=== PATIENT | male | born 1950 | race Caucasian/White ===

== ENCOUNTER → 2021-08-21 14:10 | Outpatient (BNVA) | payer MEDICARE, SELFPAY | PROVIDERS: PCP Internal Medicine; Visit Provider Psychiatry & Neurology Neurology | DX: I69.354 Hemiplegia and hemiparesis following cerebral infarction affecting left non-dominant side (principal); G47.9 Sleep disorder, unspecified; R06.83 Snoring | CPT/HCPCS: 99212 ==

== ENCOUNTER → 2022-02-25 10:21 | Outpatient (BNVA) | payer MEDICARE, SELFPAY | PROVIDERS: PCP Internal Medicine; Visit Provider Psychiatry & Neurology Neurology | DX: I69.354 Hemiplegia and hemiparesis following cerebral infarction affecting left non-dominant side (principal); R06.83 Snoring; G47.9 Sleep disorder, unspecified | CPT/HCPCS: 99212 ==

== ENCOUNTER → 2022-03-26 15:13 | Outpatient (REF) | payer MEDICARE, SELFPAY | LOC: HO.SL 15:13 | PROVIDERS: PCP Internal Medicine; Visit Provider Psychiatry & Neurology Neurology | DX: G47.33 Obstructive sleep apnea (adult) (pediatric) (principal) | CPT/HCPCS: 95806 ==

== ENCOUNTER → 2022-08-24 11:01 | Outpatient (BNVA) | payer MEDICARE, SELFPAY | PROVIDERS: PCP Internal Medicine; Visit Provider Psychiatry & Neurology Neurology | DX: I63.9 Cerebral infarction, unspecified (principal); G47.9 Sleep disorder, unspecified; R06.83 Snoring | CPT/HCPCS: 99212 ==

== ENCOUNTER → 2022-11-17 13:25 | Outpatient (BNVA) | payer MEDICARE, SELFPAY | PROVIDERS: PCP Internal Medicine; Visit Provider Psychiatry & Neurology Neurology | DX: G47.33 Obstructive sleep apnea (adult) (pediatric) (principal); I69.354 Hemiplegia and hemiparesis following cerebral infarction affecting left non-dominant side; Z79.82 Long term (current) use of aspirin; Z79.899 Other long term (current) drug therapy; Z99.89 Dependence on other enabling machines and devices | CPT/HCPCS: 99212 ==

== ENCOUNTER 2023-05-12 12:18 | Outpatient (AMB) | payer MEDICARE, SELFPAY ==
--- NOTE | 2023-05-12 12:33 | A.OFFVIS_ITS ---
Intake Vital Signs 05/12/23 12:34 Height 6 ft Weight 242 lb 8 oz BMI 32.9 BP 142/76 H Blood Pressure Location Rt brachial Position Sitting Respiration 16 Pulse 57 Pulse Source Pulse Oximeter Pulse Oximetry (%) 98 Oxygen Delivery Method Room Air Intake Visit Reasons: 6m follow up - Confirmed Intake Note: Pt presents for 6 month follow up for CVA. 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 AHI 45/hr lowest O2 -79%. He is not comfortable with CPAP so declines. He is very active still has mild residual weakness. He exercises every day. His blood pressure is well controlled [facility] Medical History EULOGIO on CPAP Sleep apnea Ascending aorta dilation CVA (cerebral vascular accident) Hyperlipidemia HTN (hypertension) Family History Father Heart attack Social History Alcohol intake: current Alcohol intake frequency: holidays/special occasions only Patient Tobacco Use Status: Never used Tobacco Review of Systems ENT Reports Normal hearing present Neuro Reports Normal hearing present Physical Exam Vital Signs: Last Vital Signs Pulse 57 05/12/23 12:34 Resp 16 05/12/23 12:34 BP 142/76 H 05/12/23 12:34 Pulse Ox 98 05/12/23 12:34 Oxygen Delivery Method Room Air 05/12/23 12:34 BMI result Body Mass Index 32.9 Const General: cooperative, healthy appearing, comfortable and no acute distress Nutritional Appearance: average body habitus Orientation/consciousness: patient oriented x3 Eyes Pupils: Equal, round and reactive pupils present Neuro General: patient oriented x3 Cranial nerves: Yes Equal, round and reactive pupils present, Yes Bilaterally intact EOM present, Yes Nystagmus not present, Yes Normal hearing present, Yes Ability to bilaterally rotate head present, Yes Ability to bilaterally elevate shoulders present and Yes Other cranial nerve findings present (mild left facial paresis) Cognition (Neuro): normal cognition Gait exam (Neuro): Spastic hemiparesis gait present Motor exam (neuro): Other motor observations present (left UE and LE - increased tone and power 4/5) Assessment & Plan Assessment & Plan (1) CVA (cerebral vascular accident): Code(s): I63.9 - Cerebral infarction, unspecified (2) EULOGIO on CPAP: Code(s): G47.33 - Obstructive sleep apnea (adult) (pediatric) Plan Continue aspirin 81 mg p.o. q.d. . Atorvastatin 80mg qd Auto CPAP 5-20 cm of water continue exercises. Coding Level of Care Code Est Pt Level 4 (89700) Diagnoses CVA (cerebral vascular accident) I63.9 EULOGIO on CPAP G47.33
[2023-05-12 12:34] VITALS: BP 142/76; PULSE 57; RESP 16; O2SAT 98; BMI 32.9
== END 2023-05-12 13:19 | disposition home or self-care (01) ==
PROVIDERS: PCP Internal Medicine; Visit Provider Psychiatry & Neurology Neurology
DX: I69.354 Hemiplegia and hemiparesis following cerebral infarction affecting left non-dominant side (principal); G47.33 Obstructive sleep apnea (adult) (pediatric); Z99.89 Dependence on other enabling machines and devices
CPT/HCPCS: 99214

== ENCOUNTER → 2023-05-12 12:18 | Outpatient (BNVA) | payer MEDICARE, SELFPAY | PROVIDERS: PCP Internal Medicine; Visit Provider Psychiatry & Neurology Neurology | DX: G47.33 Obstructive sleep apnea (adult) (pediatric) (principal); I69.354 Hemiplegia and hemiparesis following cerebral infarction affecting left non-dominant side; Z79.82 Long term (current) use of aspirin | CPT/HCPCS: 99212 ==

== ENCOUNTER 2024-05-15 12:16 | Outpatient (AMB) | payer MEDICARE, SELFPAY ==
--- OUTSIDE RECORDS SUMMARY | 2024-05-15 12:18 | XMS_ITS ---
Author Name [facility] Organization Unknown History of Medication Use Medication Directions Dispensed Refills Start Date End Date Stat us lisinopril (PRINIVIL,ZeSTRIL) 10 MG tablet Take 10 mg by mouth. 03/12/2024 05/30/9999 active [id number] nesium sulfates (Suprep Bowel Prep Kit) 17.5-3.13-1.6 GM/177ML Solution solution Follow directions provided by physician's office. 03/12/2024 05/30/9999 active atorvastatin (LIPITOR) 80 MG tablet Take 80 mg by mouth. 03/12/2024 05/30/9999 active ammonium lactate (LAC-HYDRIN) 12 % lotion Apply topically. 03/12/2024 05/30/9999 active Problems Problem Status Onset Date Problem Type Date of Resoluti on Source Personal history of other colon polyps [facility]
--- NOTE | 2024-05-15 12:19 | A.OFFVIS_ITS ---
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 Cpap compliance 02/15/2024 - 05/14/2024 Average usage is >4 hours is 7 hours 16min, Pressures are [id number], he is 100% compliant and residual AHI 1.4 He cleans his mask daily, changes filters and fills water reservoir as needed. He is sleeping better, feels more awake during daytime. He is very active still has mild residual weakness especially L. sided. AFO for foot, uses a WESTON brace L. foot to avoid inversion/ eversion of foot. He exercises every day. His blood pressure is well controlled, take a baby aspirin daily. Diet is good. Denies any changes. [facility] Medical History EULOGIO on CPAP Sleep apnea Ascending aorta dilation CVA (cerebral vascular accident) Hyperlipidemia HTN (hypertension) Family History Father Heart attack Social History Alcohol intake: current Alcohol intake frequency: holidays/special occasions only Patient Tobacco Use Status: Never used Tobacco Review of Systems Const All systems reviewed & are unremarkable except as noted in HPI and below ENT Reports Normal hearing present Neuro Reports Normal hearing present Physical Exam Vital Signs: Last Vital Signs Pulse 54 05/15/24 12:23 BP 124/62 05/15/24 12:23 Pulse Ox 98 05/15/24 12:23 Oxygen Delivery Method Room Air 05/15/24 12:23 BMI result Body Mass Index 32.7 Const General: cooperative, healthy appearing, comfortable and no acute distress Nutritional Appearance: average body habitus Orientation/consciousness: patient oriented x3 Eyes Pupils: Equal, round and reactive pupils present Neuro General: patient oriented x3 Cranial nerves: Yes Equal, round and reactive pupils present, Yes Bilaterally intact EOM present, Yes Nystagmus not present, Yes Normal hearing present, Yes Ability to bilaterally rotate head present, Yes Ability to bilaterally elevate shoulders present and Yes Other cranial nerve findings present (mild left facial paresis) Cognition (Neuro): normal cognition Gait exam (Neuro): Spastic hemiparesis gait present Motor exam (neuro): Other motor observations present (left UE and LE - increased tone and power 4/5) Results Reviewed Results Reviewed: Cpap compliance 02/15/2024 - 05/14/2024 Average usage is >4 hours is 7 hours 16min, Pressures are [id number], he is 100% compliant and residual AHI 1.4 Assessment & Plan Assessment & Plan (1) CVA (cerebral vascular accident): Code(s): I63.9 - Cerebral infarction, unspecified Category: Medical Qualifiers: CVA mechanism: other Qualified Code(s): I63.89 - Other cerebral infarction (2) EULOGIO on CPAP: Code(s): G47.33 - Obstructive sleep apnea (adult) (pediatric) Category: Medical Plan Continue using Auto CPAP 5-20 cm of water, each night and especially for naps. Continue aspirin 81 mg p.o. q.d. Atorvastatin 80mg qd. Continue PT with [facility], they do have a class 2-3 times a week for patients post CVA strength training. Follow up in 6 months, call the office if you have any questions or send us a message. Coding Level of Care Code Est Pt Level 3 (39508) Diagnoses Cerebrovascular accident (CVA) due to other mechanism I63.89 CVA mechanism: other EULOGIO on CPAP G47.33 Time Spent (min) 15 Comment improving
[2024-05-15 12:23] VITALS: BP 124/62; PULSE 54; O2SAT 98; BMI 32.7
== END 2024-05-15 12:55 | disposition home or self-care (01) ==
PROVIDERS: PCP Internal Medicine; Visit Provider Physician Assistant Medical
DX: I63.89 Other cerebral infarction (principal); G47.33 Obstructive sleep apnea (adult) (pediatric)
CPT/HCPCS: 99213

== ENCOUNTER → 2024-05-15 12:16 | Outpatient (BNVA) | payer MEDICARE, SELFPAY | PROVIDERS: PCP Internal Medicine; Visit Provider Physician Assistant Medical | DX: G47.33 Obstructive sleep apnea (adult) (pediatric) (principal); I69.354 Hemiplegia and hemiparesis following cerebral infarction affecting left non-dominant side; Z99.89 Dependence on other enabling machines and devices | CPT/HCPCS: 99212 ==

== ENCOUNTER 2024-12-18 12:47 | Outpatient (AMB) | payer MEDICARE, SELFPAY ==
[2024-12-18 12:55] VITALS: BP 138/66; PULSE 58; O2SAT 96; BMI 33.1
--- NOTE | 2024-12-18 12:55 | A.OFFVIS_ITS ---
Vital Signs 12/18/24 12:55 Height 6 ft Weight 244 lb BMI 33.1 BP 138/66 Blood Pressure Location Rt brachial Position Sitting Pulse 58 Pulse Source Pulse Oximeter Pulse Oximetry (%) 96 Oxygen Delivery Method Room Air Intake Visit Reasons: 6 mo follow up Intake Note: Pt presents for 6 month follow up for CVA. 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 Patient is accompanied by his Janay. Patient denies any significant interval medical history changes. He denies any new stroke-like symptoms. 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 However, he endorses residual left upper and lower extremity weakness. He especially may struggle with left upper extremity weakness, sometimes may be stepping left external foot. He does have older AFOs and ankle supports, however none of these help to prevent ankle inversion. notes that when he is orthopedics, and uses very low profile water shoes, he actually walks better. Uses a cane when walking outside. No recent falls Compliant with his aspirin, lisinopril and statin, though he notes he can cruise quite easily. Blood pressure is normotensive PAP compliance review Baseline home sleep study showed AHI 45/hr lowest O2 -79% He is sleeping well with PAP therapy. States he has more than enough PAP supplies. PAP supplies regularly. He uses boiled water- notes that depending on where they are, they can see different types of sediment within the water reservoir. CPAP compliance report 09/13/2019 5-12/10/2024 Overall usage 90% Usage greater than 4 hours 97% Usage on days used 6 hours and 54 minutes Mode APAP 5-20 cm H2O with EPR 2 with maximum pressure 10.2 cm H2O Median leaks 0.1 L/min Residual AHI 1.3 per hour [facility] Medical History EULOGIO on CPAP Sleep apnea Ascending aorta dilation CVA (cerebral vascular accident) Hyperlipidemia HTN (hypertension) Family History Father Heart attack Social History Alcohol intake: current Alcohol intake frequency: holidays/special occasions only Patient Tobacco Use Status: Never used Tobacco Review of Systems ENT Reports Normal hearing present Neuro Reports Normal hearing present Physical Exam Vital Signs: Last Vital Signs Pulse 58 12/18/24 12:55 BP 138/66 12/18/24 12:55 Pulse Ox 96 12/18/24 12:55 Oxygen Delivery Method Room Air 12/18/24 12:55 BMI result Body Mass Index 33.1 Const General: cooperative, healthy appearing, comfortable and no acute distress Nutritional Appearance: average body habitus Orientation/consciousness: patient oriented x3 Eyes Pupils: Equal, round and reactive pupils present Neuro Other: LUE muscle strength 5/5 LLE- 5-/5 LLE tightness/tone. especially left ankle Decreased left ankle dorsiflexion General: patient oriented x3 Cranial nerves: Yes Equal, round and reactive pupils present, Yes Bilaterally intact EOM present, Yes Nystagmus not present, Yes Normal hearing present, Yes Ability to bilaterally rotate head present, Yes Ability to bilaterally elevate shoulders present and Yes Other cranial nerve findings present (mild left facial paresis) Cognition (Neuro): normal cognition Assessment & Plan Assessment & Plan (1) CVA (cerebral vascular accident): Code(s): I63.9 - Cerebral infarction, unspecified Category: Medical Qualifiers: CVA mechanism: other Qualified Code(s): I63.89 - Other cerebral infarction (2) EULOGIO on CPAP: Code(s): G47.33 - Obstructive sleep apnea (adult) (pediatric) Category: Medical (3) Weakness of left foot: Code(s): R29.898 - Other symptoms and signs involving the musculoskeletal system Category: Medical Plan Continue: Aspirin 81 mg p.o. q.d. Atorvastatin 80mg qd Lisinopril 10 mg daily Continue to engage in regular physical exercise Request new left orthotic fitting to reduce symptoms of left ankle inversion- order given to patient, they will call their preferred prosthetic clinic. Simple foot and ankle exercises shared with patient. For EULOGIO: Continue APAP 5-20 cmH2O w/ EPR 2 nightly > 4 hours, as pt continues to have good clinical effect from use. * Clean CPAP machine and supplies routinely. * Change CPAP supplies routinely. * Use distilled water in CPAP water reservoir. * Pt to contact us or respiratory company with any questions or concerns. Follow-up in 6 months or sooner as needed. Medications: New [Left AFO orthotic] As directed 1 ea 0RF I63.89 - Other cerebral infarction, R29.898 - Other symptoms and signs involving the musculoskeletal system [Left AFO orthotic] As directed 1 ea 0RF I63.89 - Other cerebral infarction, R29.898 - Other symptoms and signs involving the musculoskeletal system Coding Level of Care Code Est Pt Level 4 (09574) Diagnoses Cerebrovascular accident (CVA) due to other mechanism I63.89 CVA mechanism: other EULOGIO on CPAP G47.33 Weakness of left foot R29.898
--- OUTSIDE RECORDS SUMMARY | 2024-12-18 13:27 | XMS_ITS | Clinical Summary ---
Author Organization [facility] Address [address] [place] [address] Care Team Providers Care Bench Molder Apprentice Name Role Phone Keith Doan MD Primary Care Provider [phone] Allergies No known active allergies Medications lisinopril (PRINIVIL,ZeSTR [place]) 10 MG tablet Take 1 tablet (10 mg total) by mouth daily. 4 Active atorvastatin (LIPITOR) 80 MG tablet Take 1 tablet (80 mg total) by mouth daily. 4 Active ammonium lactate (LAC-HYDRIN) 12 % lotion Apply topically. 4 Active sodium-potassiu m-magnesium sulfates (Suprep Bowel Prep Kit) 17.5-3.13-1.6 GM/177ML Solution solutionIndicat ions:Personal history of other colon polyps Follow directions provided by physician's office. 354 mL 4 Active Active Problems No known active problems Social History Tobacco Use Types Packs/Day Years Used Date Smoking Tobacco: Never Smokeless Tobacco: Never Alcohol Use Standard Drinks/Week Comments Yes 2 (1 standard drink = 0.6 oz pur e alcohol) Occasional AUDIT-C Answer Date Recorded Q1: How often do you have a drink containing alc ohol? 2-4 times a month 03/15/2024 Q2: How many drinks containi ng alcohol do you have on a typical day when you are drinking? 1 or 2 03/15/2024 Q3: How often do you have si x or more drinks on one occasion? Never 03/15/2024 Sex and Gender Information Value Date Recorded Sex Assigned at Male 09/22/2023 9:57 AM EDT Legal Sex Male 9:21 AM EDT Gender Identity Male 09/22/2023 9:57 AM EDT Sexual Orientation Heterosexual (straight) 09/21 9:57 AM EDT Last Filed Vital Signs Vital Sign Reading Time Taken Comments Blood Pressure 126/63 03/16/2024 1:39 PM EDT Pulse 68 03/16/2024 1:39 PM EDT Temperature 35.9 C (96.7 F) 03/16/2024 10:35 AM EDT Respiratory Rate 20 03/16/2024 1:39 PM EDT Oxygen Saturation 98% 03/16/2024 1:39 PM EDT Inhaled Oxygen Concentration - - Weight 104 kg (230 lb) 03/15/2024 9:41 AM EDT Height 182.9 cm (6') 03/15/2024 9:41 AM EDT Body Mass Index 31.19 03/15/2024 9:41 AM EDT Plan of Treatment Health Maintenance Due Date Last Done Comments Hepatitis C Virus Screening 1950 DTaP/Tdap/Td Vaccines (1 - Tdap) 1971 Pneumococcal Vaccines 50+ (1 of 1 - PCV) 2002 Zoster (Shingles) Vaccine (1 of 2) 2002 COVID-19 Vaccine (1 - 2023-2 5 season) 2024 Influenza Vaccine 12/29/2024 03/17/2023, 02/23/2018 Colonoscopy 03/16/2025 03/16/2024 RSV Vaccine 60 years and older and Patients (1 - 1-dose 75+ series) 2027 Hepatitis B Vaccines Aged Out No long er eligible based on patient's age to complete this topic Insurance MEDICARE PART A & B BLUE CROSS OUT OF STATE - PPO MEDICARE PART A & B BLUE [place]OSS OUT OF STATE - PPO Care Teams Bench Molder Apprentice Relationship Specialty Start Date End Date Keith Doan MD [address] [id number] PCP - General Internal Medicine 09/22/23
--- OUTSIDE RECORDS SUMMARY | 2024-12-18 13:27 | XMS_ITS | Clinical Summary ---
Author Organization [address] [facility] Address [address] [place] [address] Phone Care Team Providers Care [employer] Name Role Phone Keith Urena MD Primary Care Provider [phone] Allergies No known active allergies Medications aspirin 81 mg EC tablet Take 81 mg by mouth daily. Active atorvastatin (LIPITOR) 80 mg tablet Take 1 tablet (80 mg total) by mouth daily. 02/05/2024 Active cyanocobalamin (VITAMIN B-12) 1,000 mcg tablet Take 1 tablet (1,000 mcg total) by mouth 1 (one) time each day. Active acetaminophen (TYLENOL 8 HOUR) 650 mg 8 hr tablet Take 650 mg by mouth every 8 hours as needed. Active atorvastatin (LIPITOR) 80 mg tablet Take 1 tablet (80 mg total) by mouth at bedtime. Active lisinopriL (PRINIVIL,ZESTRI L) 10 mg tablet TAKE 1 TABLET BY MOUTH EVERY DAY 90 tablet 3 10/05/2024 Active Active Problems Problem Noted Date Diagnosed Date Encounter for loop recorder at end of battery li fe 08/17/2024 Acute CVA (cerebrovascular a ccident) ([facility] V24, [facility] V28) 03/10/2021 Overview (09/10/2024): - Diagnosed in January 2021 when brain MRI showed acute, nonhemorrhagic stroke of the mid supra posterior right frontal lobe white matter; CT angiography did not show any large vessel thromboses or significant stenoses - Echocardiogram during the admission showed showed mild, concentric left ventricular hypertrophy with normal LV cavity size and systolic function, normal regional wall motion with an ejection fraction of 60 to 65%, normal RV size and systolic function, no hemodynamically significant valve disease, dilated ascending aorta at 4.3 cm with normal aortic root, moderate left atrial enlargement. Agitated saline contrast study was negative for interatrial shunting both at rest and with Valsalva - Currently on baby aspirin, high-dose statin - Ultimately we placed an ILR - Most recent check of the device was on 06/08/2022-to date, he has not had any atrial fibrillation but 886 instances of bradycardia described as less than 30 bpm for greater than 3 seconds- none of these have occurred recently Thoracic aortic aneurysm without rupture ([facility]/ C V24) 03/10/2021 HLD (hyperlipidemia) 03/05/2021 HTN (hypertension) 03/05/2021 Encounters Date Type Department Care Team Description 12/15/2024 1:00 PM EDT - 12/15/2024 1:30 PM EDT Surgery [facility] [address] [place] [id number] Tyrese Buenrostro MD Loop recorder removal [03281 (CPT )] 12/15/2024 10:31 AM EDT - 12/15/2024 11:50 AM EDT Hospital Encounter [facility] [address] [place] [address] Tyrese Buenrostro MD Encounter for loop recorder at end of battery life Discharge Disposition: Home or Self Care 11/07/2024 Telephone [facility] [address] [place] [id number] Tyrese Buenrostro MD Loop recorder removal --cancel (Loop recorder removal /--cancelled ) from Last 3 Months Medical History Medical History Date Comments Vitamin B12 deficiency DX:Vitami n B12 deficiency CVA (cerebral vascular accid ent) ([facility] V24, [facility] V28) DX:CVA (cerebral vascular a ccident) ([facility]) EULOGIO (obstructive sleep apnea) DX :EULOGIO (obstructive sleep apnea) Ascending aorta dilatation ([facility] V24) DX:Ascending aorta dilatation ([facility]) Obesity DX:Obesity Family History Medical History Relation Name Comments No Known Problems Brother in mi d to late 60s of Agent [place] related issues No Known Problems Father in 80 s Diabetes Mother at 81 Relation Name Status Comments Brother Father Mother Social History Tobacco Use Types Packs/Day Years Used Date Smoking Tobacco: Never Smokeless Tobacco: Never Alcohol Use Standard Drinks/Week Comments Yes 0 (1 standard drink = 0.6 oz pur e alcohol) Sex and Gender Information Value Date Recorded Sex Assigned at Not on file Legal Sex Male 12:57 AM EST Gender Identity Not on file Sexual Orientation Not on file Obstetrics History Last Filed Vital Signs Vital Sign Reading Time Taken Comments Blood Pressure 128/58 12/15/2024 10:42 AM EDT Pulse 56 12/15/2024 10:42 AM EDT Temperature - - Respiratory Rate 18 12/15/2024 10:42 AM EDT Oxygen Saturation 96% 12/15/2024 10:42 AM EDT Inhaled Oxygen Concentration - - Weight 111 kg (245 lb) 08/10/2024 10:53 AM EDT Height 182.9 cm (6') 08/10/2024 10:53 AM EDT Body Mass Index 33.23 08/10/2024 10:53 AM EDT Plan of Treatment Health Maintenance Due Date Last Done Comments DTaP,Tdap,and Td Vaccines (1 - Tdap) 1969 Cholesterol Screening (Lipid Panel) 05/03/2022 Falls Risk Assessment 05/03/2022 Hepatitis C Screening 05/03/2022 Medicare Annual Wellness Visit 05/03/2022 Social Influencers of Health Screening 05/03/2022 Hypertension/CHF/CAD Annual BMP Blood Test 05/07/2022 04/09/2021 COVID-19 Vaccine ( season) 2024 03/24/2022, 12/17/2021, 04/21/2021, Additional history exists Depression Screening 05/31/2024 Influenza Vaccine (#1) 2025 , 03/24/2022, 04/02/2021, Additional history exists RSV Immunization Adult Patients (1 - 1-dose 75+ series) 2027 Colorectal Cancer Screening: Colonoscopy 03/16/2034 03/16/2024 Pneumococcal Vaccine: 50+ Years Completed 08/20/2021, 01/26/2020 Zoster Vaccines Completed 12/14/2022, 10/01/2022 HIB Vaccines Aged Out No longer eligi ble based on patient's age to complete this topic HPV Vaccines Aged Out No longer eligi ble based on patient's age to complete this topic Hepatitis A Vaccines Aged Out No long er eligible based on patient's age to complete this topic Hepatitis B Vaccines Aged Out No long er eligible based on patient's age to complete this topic IPV Vaccines Aged Out No longer eligi ble based on patient's age to complete this topic MMR Vaccines Aged Out No longer eligi ble based on patient's age to complete this topic Meningococcal ACWY Vaccine Aged Out N o longer eligible based on patient's age to complete this topic Meningococcal B Vaccine Aged Out No l onger eligible based on patient's age to complete this topic RSV Immunization Patients Under 20 months Aged Out No longer eligible based on patient's age to complete this topic Varicella Vaccines Aged Out No longer eligible based on patient's age to complete this topic Medical Devices Implanted Type Area Netsuite Developer Device Identifier Shelf Expiration Date Model / Serial / Lot Bsci-Crm [id number] Implanted:03/31 (Quantity not on file) Cardiac Loop Recorder [place] [employer] MGMT [id number] / [id number] / Procedures Procedure Name Priority Date/Time Associated Diagnosis Comments LOOP RECORDER REMOVAL Routine 12/15/2024 11:22 AM EDT Encounter for loop recorder at end of battery life EXTERNAL CLINICAL LAB Routine 12/06/2024 8:59 AM EDT ANNUAL BMP BLOOD TEST Routine 04/09/2021 from Last 3 Months or Most Recently Relevant to Health Maintenance Results * LOOP RECORDER REMOVAL (12/15/2024 11:22 AM EDT) Anatomical Region Laterality Modality X-Ray Angiograph y Narrative 12/18/2024 8:08 AM EDT Successful removal of an ILR Study Details Loop recorder battery depletion Clinical Background This patient had an aspect of a loop recorder placed for syncope and now is reached elective replacement indicators. Procedure Details The patient was prepped in the usual sterile fashion and after obtaining written informed consent I injected 3cc of 2% lido with epi over the ILR implant site in the left chest. I made a 1cm incision and removed the device without difficulty. After a 2.0 vicryl stitch and surgical glue application the procedure was terminated Tyrese Buenrostro MD CV ELECTROPHYSIOLOGY PROCEDURE S Final Result * External clinical lab (12/06/2024 8:59 AM EDT) Historical Provider LAB BLOOD ORDERABLES Edit ed Result - Final * Annual BMP Blood Test (04/09/2021) Annual BMP Blood Test abstracted Historical Provider HEALTH MAINTENANCE Final Result from Last 3 Months or Most Recently Relevant to Health Maintenance Insurance MEDICARE [facility] Advance Directives Documents on File Type Date Recorded Patient Fern Gatherer Expl anation Health Care Decision (hx) 03/08/2021 AD FONG DIRECTIVE Health Care Decision (hx) 02/10/2021 AD FONG DIRECTIVE Health Care Decision (hx) 02/10/2021 AD FONG DIRECTIVE Health Care Decision (hx) 02/10/2021 AD FONG DIRECTIVE Health Care Decision (hx) 02/10/2021 AD FONG DIRECTIVE Health Care Decision (hx) 02/10/2021 AD FONG DIRECTIVE Health Care Decision (hx) 02/10/2021 AD FONG DIRECTIVE Health Care Decision (hx) 02/10/2021 AD FONG DIRECTIVE Health Care Decision (hx) 02/10/2021 AD FONG DIRECTIVE Health Care Decision (hx) 02/10/2021 AD FONG DIRECTIVE Health Care Decision (hx) 02/10/2021 AD FONG DIRECTIVE Care Teams C[employer] Relationship Specialty Start Date End Date Keith Urena MD [address] [place] [address] PCP - General Internal Medicine 08/07/24
== END 2024-12-18 13:53 | disposition home or self-care (01) ==
LOC: HO.HSMS 12:48
PROVIDERS: PCP Internal Medicine; Visit Provider Nurse Practitioner Family
DX: I63.89 Other cerebral infarction (principal); G47.33 Obstructive sleep apnea (adult) (pediatric); R29.898 Other symptoms and signs involving the musculoskeletal system
CPT/HCPCS: 99214

== ENCOUNTER → 2024-12-18 12:47 | Outpatient (BNVA) | payer MEDICARE, SELFPAY | PROVIDERS: PCP Internal Medicine; Visit Provider Nurse Practitioner Family | DX: I63.89 Other cerebral infarction (principal); G47.33 Obstructive sleep apnea (adult) (pediatric); R29.898 Other symptoms and signs involving the musculoskeletal system | CPT/HCPCS: 99212 ==